=== PATIENT | female | born 1970 | race Caucasian/White ===

== ENCOUNTER 2023-05-05 09:12 | Emergency (ER) | payer OTHER ==
[2023-05-05 09:29] VITALS: RESP 18; TEMP 97.6; BMI 27.0
[2023-05-05] MEDS ORDERED: SODIUM CHLORIDE 0.9% 500 ML INFUS.BAG IV ONE (10:37)
[2023-05-05] MEDS ORDERED: METOCLOPRAMIDE HCL INJECTION 10 MG/2 ML VIAL IVPUSH ONE (10:37)
[2023-05-05] MEDS ORDERED: METOCLOPRAMIDE HCL INJECTION 10 MG/2 ML VIAL ONE (11:33)
[2023-05-05 11:57] LABS: BASO % 1.3 % (0-2.0); EOS % 1.7 % (0-4.5); HEMATOCRIT 41.8 % (32.4-45.2); LYMPH % 30.3 % (8-40); MCH 31.1 pg (25.7-33.7); MCHC 33.5 g/dl (32.0-36.0); MEAN CELL VOLUME 92.9 fl (80-96); MEAN PLT VOLUME 8.8 fl (7.5-11.1); MONO % 7.6 % (3.8-10.2); NEUT % 59.1 % (42.8-82.8); PLATELET COUNT 230 10^3/uL (134-434); RDW 12.8 % (11.6-15.6); WHITE BLOOD COUNT 4.3 K/mm3 (4.0-10.0)
[2023-05-05 12:06] LABS: POTASSIUM 4.1 mmol/L (3.5-5.1)
[2023-05-05 12:08] LABS: CALCIUM 9.1 mg/dL (8.5-10.1)
[2023-05-05 12:09] LABS: BLOOD UREA NITROGEN 14.1 mg/dL (7-18)
[2023-05-05 12:12] LABS: CREATININE 0.8 mg/dL (0.55-1.3)
[2023-05-05 12:13] LABS: BILIRUBIN,TOTAL 0.7 mg/dL (0.2-1)
[2023-05-05 13:26] LABS: PH,URINE 7.5 (5.0-8.0); URINE APPEARANCE CLEAR; URINE BILIRUBIN NEGATIVE (NEGATIVE); URINE COLOR YELLOW; URINE GLUCOSE (UA) NEGATIVE (NEGATIVE); URINE KETONE NEGATIVE (NEGATIVE); URINE LEUK ESTERASE NEGATIVE (NEGATIVE); URINE NITRITE NEGATIVE (NEGATIVE); URINE PROTEIN NEGATIVE (NEGATIVE); URINE UROBILINOGEN 0.2 mg/dL (0.2-1.0)
[2023-05-05 13:57] VITALS: BP 140/95; PULSE 65
== END 2023-05-05 13:56 | disposition home or self-care (01) ==
LOC: JER 09:12
PROC: 3E033GC Introduction of Other Therapeutic Substance into Peripheral Vein, Percutaneous Approach (ICD-10-PCS; principal; 2023-05-05)
DX: R51.9 Headache, unspecified (principal); R11.0 Nausea; I10 Essential (primary) hypertension; H53.71 Glare sensitivity
CPT/HCPCS: 36415; 70450-TC; 80053; 81003; 84703; 85025; 93005; 93010; 99285-25